=== PATIENT | male | born 1985 | race Caucasian/White ===

== ENCOUNTER 2017-12-03 19:11 | Emergency (ER) | payer MEDICAID ==
--- NOTE | 2017-12-03 19:52 | ED PDOC ---
HPI: Headache Time Seen by Provider: 12/03/17 19:19 Chief Complaint (Nursing): Weakness/Neurological Deficit Chief Complaint (Provider): Headache History Per: Patient History/Exam Limitations: no limitations Onset/Duration Of Symptoms: Hrs, Sudden Onset Current Symptoms Are (Timing): Still Present Associated Symptoms: Nausea, Vomiting. denies: Blurred Vision Additional History Per: Prior Records Additional Complaint(s): Rafi Cali is a 32 year old male with a past medical history of a developmental delay, asthma, hypertension, and LEFT craniotomy brain aneurysm repair performed (?clipped) 6 years ago who is presenting to the ED with complaints of sudden onset headache associated with nausea and vomiting, onset around 4 pm today. Pain was not relived with Tylenol and episodes of vomiting were non-bloody and non-bilious. Patient denies any diarrhea, abdominal pain, new focal weakness, or blurry vision. Due to patient's clinical condition (developmental delay) history obtained from father. But father appears to also be poor historian as well. Pt does NOT have a shunt. Some history obtained from previous charts. PMD: Dr. Monahan - Risk Factors SAH Risk Factors: Pos: Sudden Onset Of Pain Past Medical History Reviewed: Historical Data, Nursing Documentation, Vital Signs Vital Signs: Last Vital Signs Temp 97.5 F L 12/03/17 19:13 Pulse 78 12/03/17 19:13 Resp 18 12/03/17 19:13 BP 139/93 H 12/03/17 19:13 Pulse Ox 99 12/03/17 19:13 - Medical History PMH: Asthma, Bronchitis, HTN, Hypercholesterolemia, Kidney Stones Denies: HIV, Chronic Kidney Disease Other PMH: developmental delay - Surgical History Other surgeries: LEFT brain aneurysm repair, Ureteral stent, penile surgery in childhood - Family History Family History: States: Hypertension - Living Arrangements Living Arrangements: With Family (in care of parents) - Social History Current smoker - smoking cessation education provided: No Alcohol: None Drugs: Denies - Immunization History Hx Tetanus Toxoid Vaccination: No Hx Influenza Vaccination: No Hx Pneumococcal Vaccination: No - Home Medications Home Medications: Ambulatory Orders Medication Instructions Recorded Albuterol HFA [Ventolin HFA 90 90 mcg INH Q4 05/03/15 mcg/actuation (8 g)] Fluticasone Propionate [Flonase] 50 mcg INH DAILY 05/03/15 Levocetirizine Dihydrochloride 5 mg PO DAILY 05/03/15 Quetiapine Fumarate 25 mg PO DAILY 05/03/15 Simvastatin 40 mg PO DAILY 05/03/15 Amlodipine Besylate [Norvasc] 5 mg PO DAILY #0 tablet 05/05/15 Tamsulosin [Flomax] 0.4 mg PO DAILY #0 cap 05/05/15 Enalapril Maleate [Vasotec] 20 mg PO DAILY 06/02/15 Hydrochlorothiazide [HCTZ] 12.5 mg PO DAILY 06/02/15 Cephalexin [Keflex] 500 mg PO TID #21 capsule 07/13/15 - Allergies Allergies/Adverse Reactions: Allergies Allergy/AdvReac Type Severity Reaction Status Date / Time ciprofloxacin [From Cipro] AdvReac RASH Verified 07/04/15 14:12 Review of Systems ROS Statement: Except As Marked, All Systems Reviewed And Found Negative Eyes: Negative for: Vision Change Gastrointestinal: Positive for: Nausea, Vomiting. Negative for: Abdominal Pain , Diarrhea Neurological: Positive for: Headache. Negative for: Weakness Physical Exam - Reviewed Nursing Documentation Reviewed: Yes Vital Signs Reviewed: Yes - Physical Exam Appears: Positive for: Non-toxic, In Acute Distress (mild painful distress, appears younger than given age) Head Exam: Positive for: ATRAUMATIC (large surgical scar on left scalp with palpable shunt, questionably compressible ), NORMAL INSPECTION Skin: Positive for: Warm, Dry Eye Exam: Positive for: EOMI, PERRL ENT: Negative for: Pharyngeal Erythema, Tonsillar Exudate Neck: Positive for: Painless ROM, Supple Cardiovascular/Chest: Positive for: Regular Rate, Rhythm. Negative for: Murmur Respiratory: Positive for: Normal Breath Sounds. Negative for: Wheezing Gastrointestinal/Abdominal: Positive for: Soft. Negative for: Tenderness Back: Positive for: Normal Inspection. Negative for: Decreased ROM Extremity: Positive for: Other (diffuse poor muscle bulk, short stature ) Lymphatic: Negative for: Adenopathy Neurologic/Psych: Positive for: Alert, Other (minimally verbal, answers yes/no, prefers to write). Negative for: Motor/Sensory Deficits - Laboratory Results Result Diagrams: 12/03/17 20:05 12/03/17 20:05 - ECG ECG: Positive for: Interpreted By Me ECG Rhythm: Positive for: Normal QRS, Normal ST Segment, Sinus Rhythm O2 Sat by Pulse Oximetry: 99 (RA) Pulse Ox Interpretation: Normal - Radiology X-Ray: Interpreted by Me X-Ray Interpretation: No Acute Disease - Progress Re-evaluation Time: 22:45 Condition: Unchanged - Critical Care Total Time (In Min): 30 Documented Critical Care: Time excludes all time spent performint seperately billable procedures Medical Decision Making Medical Decision Making: Time: 19:31 Impression: Headache with history of aneurysm Differentials (including but not limited to): cerebral aneurysm , tension headache, viral syndrome, gastritis, dehydration Plan: --CT Head --CMP --Lipase --Magnesium --Phosphorous --ED Urine Dipstick --CBC --Coags --Chest X-Ray --Morphine 2 mg IVP --Zofran 8 mg IV --X-ray abdomen --X-ray Skull CT Head: FINDINGS: Brain: An enlarged bilateral subarachnoid hemorrhage which is greater on the right than on the left. No significant white matter disease. Ventricles: There is a small volume of intraventricular hemorrhage in the frontal horns bilaterally. Bones/joints: Unremarkable. No acute fracture. Soft tissues: Unremarkable. Vasculature: An aneurysmal clip is noted in the left frontotemporal region. Sinuses: Unremarkable as visualized. No acute sinusitis. Mastoid air cells: Unremarkable as visualized. No mastoid effusion. IMPRESSION: Large acute subarachnoid hemorrhage. Findings discussed with Salima Bah at 12/03/2017 10:29 PM EDT. The results were understood and acknowledged. Small volume of intraventricular hemorrhage. Left frontotemporal aneurysm clip. CTA Head Neck Bundle: FINDINGS: Right internal carotid artery: No acute findings. Intracranial segment is patent with no significant stenosis. No aneurysm. Right anterior cerebral artery: Unremarkable. No occlusion or significant stenosis. No aneurysm. Right middle cerebral artery: In the right middle cerebral artery, there is a 0.4 x 0.3 x 0.6 cm aneurysm located on axial series 2 image 71-74. No occlusion or significant stenosis. Right posterior cerebral artery: Unremarkable. No occlusion or significant stenosis. No aneurysm. Right vertebral artery: Unremarkable as visualized. Left internal carotid artery: No acute findings. Intracranial segment is patent with no significant stenosis. No aneurysm. Left anterior cerebral artery: Unremarkable. No occlusion or significant stenosis. No aneurysm. Left middle cerebral artery: The patient is status post aneurysmal clipping at the left middle cerebral artery. No occlusion or significant stenosis. No aneurysm. Left posterior cerebral artery: Unremarkable. No occlusion or significant stenosis. No aneurysm. Left vertebral artery: Unremarkable as visualized. Basilar artery: Unremarkable. No occlusion or significant stenosis. No aneurysm. IMPRESSION: Right middle cerebral artery aneurysm. Status post aneurysm clipping of the left middle cerebral artery. CTA Head Neck Bundle: FINDINGS: VASCULATURE: Right common carotid artery: Unremarkable. No significant stenosis. No dissection or occlusion. Right internal carotid artery: Unremarkable. Extracranial segment is patent with no significant stenosis. No dissection or occlusion. Right external carotid artery: Unremarkable. No occlusion. Right vertebral artery: Unremarkable. No significant stenosis. No dissection or occlusion. Left common carotid artery: Unremarkable. No significant stenosis. No dissection or occlusion. Left internal carotid artery: Unremarkable. Extracranial segment is patent with no significant stenosis. No dissection or occlusion. Left external carotid artery: Unremarkable. No occlusion. Left vertebral artery: Unremarkable. No significant stenosis. No dissection or occlusion. NECK: Bones/joints: No acute fracture. No dislocation. Soft tissues: Unremarkable as visualized. No mass. CAROTID STENOSIS REFERENCE USING NASCET CRITERIA: % ICA stenosis = (1 - narrowest ICA diameter/diameter of distal cervical ICA) x 100. Mild - <50% stenosis. Moderate - 50-69% stenosis. Severe - 70-94% stenosis. Near occlusion - 95-99% stenosis. Occluded - 100% stenosis. IMPRESSION: Normal neck CTA. IV Nicardipine initiated to maintain MAP <110 [facility] who recommends transfer for interventional management of aneurysm [facility] who advised transfer to [facility] as well as IV [place] DARELL Guajardo at [facility] transfer center DAERLL [place] (sp?) Surgical ICU attending at [facility] DARELL Surgical ICU fellow at [facility] DARELL pt and family findings and plan of care. Risks/benefits of current plan discussed. Consent for transfer signed by father. Scribe Attestation: Documented by, Coni Roberts acting as a scribe for Salima Bah MD. Provider Scribe Attestation: All medical record entries made by the Scribe were at my direction and personally dictated by me. I have reviewed the chart and agree that the record accurately reflects my personal performance of the history, physical exam, medical decision making, and the department course for this patient. I have also personally directed, reviewed, and agree with the discharge instructions and disposition. Disposition - Clinical Impression Clinical Impression: Subarachnoid hemorrhage, Cerebral aneurysm rupture Counseled Patient/Family Regarding: Studies Performed, Diagnosis - Disposition Disposition: Other Institution Disposition Time: 23:45 Condition: CRITICAL
[2017-12-03 20:09] LABS: BASO # 0.2 K/uL (0.0-0.2); BASO % 0.9 % (0.0-2.0); EOS # 0.1 K/uL (0.0-0.7); EOS % 0.4 % (0.0-4.0); HEMOGLOBIN 15.9 g/dL (12.0-18.0); LYMPH % 10.6 % (20.0-40.0); MEAN CELL VOLUME 82.6 fl (80.0-94.0); MEAN CORPUSCULAR HEMOGLOBIN 28.4 pg (27.0-31.0); MEAN CORPUSCULAR HGB CONC 34.4 g/dL (33.0-37.0); MEAN PLATELET VOLUME 8.5 fl (7.2-11.7); MONO # 1.9 K/uL (0.0-0.8); NEUT # 14.4 K/uL (1.8-7.0); NEUT % 78.1 % (50.0-75.0); NRBC % 0.1 % (0.0-0.0); RBC 5.61 Mil/uL (4.40-5.90); RED CELL DISTRIBUTION WIDTH 13.4 % (11.5-14.5); WHITE BLOOD COUNT 18.5 K/uL (4.8-10.8)
[2017-12-03 20:16] LABS: INR 1.2; PROTHROMBIN TIME 13.2 Seconds (9.8-13.1)
[2017-12-03 20:19] LABS: PARTIAL THROMBOPLASTIN TIME 32.1 Seconds (25.6-37.1)
[2017-12-03 20:20] LABS: ALB/GLOB RATIO 1.5 (1.0-2.1); ALBUMIN 4.7 g/dL (3.5-5.0); ALT/SGPT 76 U/L (21-72); AST/SGOT 75 U/L (17-59); BLOOD UREA NITROGEN 9 mg/dl (9-20); CALCIUM 10.1 mg/dL (8.4-10.2); GFR NON-AFRICAN AMERICAN > 60; LIPASE 171 U/L (23-300)
[2017-12-03] MEDS ORDERED: Sodium Chloride 0.9% 50 ML IV ONE (21:09)
[2017-12-03] MEDS ORDERED: Iodixanol 320 MG/ML 100 ML BOTTLE IV ONE (21:09)
[2017-12-03 22:28] VITALS: O2SAT 99
[2017-12-03] MEDS ORDERED: Nicardipine 20 MG/200 ML 20 MG/200 ML BAG IV ONE (22:33)
[2017-12-03] MEDS ORDERED: Morphine 4 MG/ML VIAL IVP STA (22:44)
[2017-12-03] MEDS ORDERED: Morphine 4 MG/ML VIAL ONE (22:50)
[2017-12-03] MEDS ORDERED: Nicardipine 20 MG/200 ML 20 MG/200 ML BAG ONE (22:50)
[2017-12-03 22:54] LABS: URINE BACTERIA OCC (<OCC); URINE BILIRUBIN NEGATIVE (NEGATIVE); URINE BLOOD NEGATIVE (NEGATIVE); URINE CLARITY TURBID (Clear); URINE COLOR YELLOW (YELLOW); URINE GLUCOSE (UA) 50 mg/dL (Normal); URINE PROTEIN NEGATIVE (NEGATIVE); URINE UROBILINOGEN 0.2-1.0 mg/dL (0.2-1.0)
[2017-12-03 22:55] LABS: URINE LEUKOCYTE ESTERASE SMALL Leu/uL (Negative)
[2017-12-03 23:05] VITALS: BP 145/109; PULSE 65; RESP 22
[2017-12-04] MEDS ORDERED: Nicardipine 20 MG/200 ML 20 MG/200 ML BAG ONE (00:30)
[2017-12-04 08:33] VITALS: TEMP 97.7
--- NOTE | 2017-12-04 08:49 | RAD ---
Date of service: 12/03/2017 HISTORY: shunt eval COMPARISON: Chest radiographs 07/09/2015 TECHNIQUE: Chest PA and lateral FINDINGS: LUNGS: No active pulmonary disease. PLEURA: No significant pleural effusion identified. No pneumothorax apparent. CARDIOVASCULAR: Normal. Prior right PICC now removed. OSSEOUS STRUCTURES: No significant abnormalities. VISUALIZED UPPER ABDOMEN: Normal. OTHER FINDINGS: None. IMPRESSION: No interval acute cardiopulmonary disease appreciated.Prior right PICC apparently now removed.
--- NOTE | 2017-12-04 08:54 | RAD ---
Date of service: 12/03/2017 PROCEDURE: Skull x-ray. HISTORY: COMPARISON: None available. TECHNIQUE: Four views of the skull were obtained. FINDINGS: Patient status post right pterional craniotomy for apparent aneurysm repair with aneurysm clip identified lateral to the sella by a few cm. The bone mineralization is normal. IMPRESSION: Prior right pterional craniotomy for reported aneurysm plane with aneurysm clip identified to the right of the sella. No fracture appreciated or other calvarial disruption of the craniotomy.
--- NOTE | 2017-12-04 09:10 | RAD ---
Date of service: 12/03/2017 HISTORY: shunt evaluation AP and LATERAL COMPARISON: No prior. FINDINGS: BOWEL: Nonobstructive bowel gas pattern. No abnormal internal calcifications. Gas is seen in few loops of large and small bowel as well as the gastric viscus. BONES: Normal. OTHER FINDINGS: None. IMPRESSION: No active disease.
--- NOTE | 2017-12-04 09:42 | CARD ---
APPROVED REPORT Date of service: 12/03/2017 <Conclusion> Normal sinus rhythm with sinus arrhythmia Moderate voltage criteria for LVH, may be normal variant T wave abnormality, consider lateral ischemia Abnormal ECG
--- NOTE | 2017-12-04 10:56 | CT ---
Date of service: 12/03/2017 PROCEDURE: CT HEAD WITHOUT CONTRAST. HISTORY: shunt r/o obstruction COMPARISON: Comparison made with CT scan brain 05/03/2015. Correlation also made with concurrent CTA of the brain. TECHNIQUE: Axial computed tomography images were obtained through the head/brain without intravenous contrast. Radiation dose: Total exam DLP = 711.31 mGy-cm. This CT exam was performed using one or more of the following dose reduction techniques: Automated exposure control, adjustment of the mA and/or kV according to patient size, and/or use of iterative reconstruction technique. FINDINGS: HEMORRHAGE: Diffuse subarachnoid hemorrhage seen within the suprasellar on cistern extending into the interpeduncular fossa of perimesencephalic/ ambient cistern and into the lateral fissure is right greater than left. There is also extension hemorrhage into the anterior aspect of the interhemispheric fissure. Hemorrhage is also seen within the frontal horns and 3rd ventricle. Findings are most consistent with a ruptured aneurysm likely located in the along the right MCA trifurcation or posterior communicating artery. Traditional four-vessel cerebral angiogram may be required for definitive diagnosis. BRAIN: Patient is status post left-sided pterional craniotomy defect and aneurysm clipping in the region of the left MCA trifurcation. Surrounding encephalomalacia left inferior lateral frontal lobe extending posteriorly along the left anterior inferior subinsular region. The there is also extension into the left perifrontal horn white matter There is associated ex vacuo dilatation of the left frontal horn. Mild -moderate generalized volume loss. VENTRICLES: There is a very mild on hydrocephalus. CALVARIUM: Calvarium otherwise intact not withstanding at aforementioned left pterional craniotomy changes. PARANASAL SINUSES: There is mild to moderate mucosal thickening left chamber sphenoid sinus. Mild mucosal thickening within the ethmoid air complex extending superiorly into the frontal sinus. There is also mild mucosal thickening in the maxillary sinuses right greater than left. The MASTOID AIR CELLS: Unremarkable as visualized. No inflammatory changes. OTHER FINDINGS: None. IMPRESSION: Diffuse subarachnoid hemorrhage seen within the suprasellar on cistern extending into the interpeduncular fossa of perimesencephalic/ ambient cistern and into the lateral fissure is right greater than left. There is also extension hemorrhage into the anterior aspect of the interhemispheric fissure. Hemorrhage is also seen within the frontal horns and 3rd ventricle. Findings are most consistent with a ruptured aneurysm likely located in the along the right MCA trifurcation or posterior communicating artery. Traditional four-vessel cerebral angiogram may be required for definitive diagnosis. Patient is status post left-sided pterional craniotomy defect and aneurysm clipping in the region of the left MCA trifurcation. Surrounding encephalomalacia left inferior lateral frontal lobe extending posteriorly along the left anterior inferior subinsular region. The there is also extension into the left perifrontal horn white matter There is associated ex vacuo dilatation of the left frontal horn. Concordant preliminary results provided by overnight radiology service
--- NOTE | 2017-12-04 11:10 | CT ---
Date of service: 12/03/2017. PROCEDURE: CT Angiography of the neck and brain with contrast. HISTORY: Headache in a patient with history of left brain aneurysm head . COMPARISON: Comparison made with concurrent CT scan brain as well as prior CT scan brain 2015. TECHNIQUE: Contiguous helical/transaxial images of the neck and brain were obtained from the level of the vertex to the superior mediastinum in the arteriographic phase of enhancement. Coronal and sagittal reformats or also generated. IV contrast dose: 95 cc Visipaque 320 Radiation Dose - DLP: 507.99 mGy-cm This CT exam was performed using one or more of the following dose reduction techniques: Automated exposure control, adjustment of the mA and/or kV according to patient size, and/or use of iterative reconstruction technique. . FINDINGS: The aortic arch widely patent. . There is apparent right subclavian artery which arises as the last vessel along the distal transverse aortic arch and extends dorsal to the esophagus and trachea. The common carotid arteries, carotid bifurcations and internal carotid artery is widely patent. The distal internal carotid artery's including the petrous cavernous and supraclinoid segments also patent though the cavernous carotid arteries appear diminutive in caliber possibly loose mild vasospasm. The A1 segments are patent. The A2 segments and distal branches of the anterior cerebral arteries are patent as well. Minor asymmetry of the M1 segments right-sided which is smaller in caliber/more narrowed than the left side possibly due to its mild vasospasm. There is a right MCA trifurcation aneurysm which measures approximately 5.2 x 3.6 mm, dome of which is oriented laterally to the right. . There is a aneurysm clip seen in the region of the left middle cerebral artery trifurcation. Previously noted diffuse subarachnoid hemorrhage of within the suprasellar region and extending into the lateral fissures in a right more significant than left less well seen compared to concurrent CT scan of the brain. IMPRESSION: There is a small of right MCA trifurcation region aneurysm measuring approximately 5.2 x 3.6 mm. This is likely the aneurysm that has ruptured resulting in diffuse subarachnoid hemorrhage as described above. Diffuse subarachnoid hemorrhage is less well seen on this study as compared concurrent noncontrast CT scan brain. Left pterional craniotomy defect with aneurysm clip in the left MCA trifurcation region with surrounding encephalomalacia changes left frontal and left anterolateral basal ganglia. 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
== END 2017-12-03 23:30 | disposition short-term general hospital (02) ==
LOC: H.ER 19:11
DX: I60.9 Nontraumatic subarachnoid hemorrhage, unspecified (principal); I60.7 Nontraumatic subarachnoid hemorrhage from unspecified intracranial artery; E78.00 Pure hypercholesterolemia, unspecified
CPT/HCPCS: 70250; 70450; 70496; 70498; 71046; 74019; 80053; 81003; 82948; 83690; 83735; 84100; 85025; 85610; 85730; 87086; 93005; 96374; 96375; 96376; 99285; J1953; J2270; J2405; Q9967